=== PATIENT | male | born 1960 | race Caucasian/White ===

== ENCOUNTER → 2017-09-16 | Outpatient (CLI) | payer BC ==
--- NOTE | 2017-09-16 10:19 | Diagnostic Imaging Report ---
INDICATION: Hepatic steatosis. Ultrasonography in the right upper quadrant reveals liver measuring 15.2 cm in length. No focal hepatic abnormality is identified and there is no biliary ductal dilatation. There is an approximately 0.4 cm calculus seen within the lumen of the gallbladder with possible additional calcifications in the neck region. There is no evidence of gallbladder wall thickening or pericholecystic fluid. Common bile duct and pancreas are largely obscured. No right renal abnormality or free fluid is seen. IMPRESSION: Cholelithiasis without other evidence of acute cholecystitis or biliary obstruction. No hepatic lesion was identified. Dictated by: Dictated on workstation # [id number]
== END ==
LOC: RAD 09:03
PROVIDERS: ATTEND Internal Medicine
DX: K80.20 Calculus of gallbladder without cholecystitis without obstruction (principal); K76.0 Fatty (change of) liver, not elsewhere classified
CPT/HCPCS: 76705

== ENCOUNTER 2020-01-16 07:25 | Outpatient (CLI) | payer BC ==
[~2020-01-16] VITALS: Ht 185.4 cm; Wt 94.5 kg
[~2020-01-16 07:25] MED LIST: LOSA50TA63 PO; LOVA20TA2 PO; METF-399 PO; SITA100T12 PO
== END 2020-01-16 14:20 | disposition home or self-care (01) ==
LOC: PREOP 07:25
PROVIDERS: ATTEND Internal Medicine
DX: Z01.818 Encounter for other preprocedural examination (principal)
CPT/HCPCS: 87635

== ENCOUNTER 2020-01-19 07:09 | Day surgery (SDC) | payer BC ==
--- NOTE | 2020-01-06 15:23 | HISTORY AND PHYSICAL ---
DATE OF SERVICE: COLONOSCOPY HISTORY AND PHYSICAL DATE OF ADMISSION: 01/19/2020. HISTORY OF PRESENT ILLNESS: The patient is a 59-year-old white male referred by Dr. Herr for screening colonoscopy. He is deemed to be of average risk. He is not aware of any family history for colon cancer. He denies any problems with bowel habit change, abdominal pain, melena or bright red blood per rectum. PAST MEDICAL HISTORY: Significant for hypertension, hyperlipidemia and type 2 diabetes mellitus with no known history for vascular disease. FAMILY HISTORY: He is not aware of any history for malignancy. Mother of complications of ruptured brain aneurysm at the age of 68. Father of complications of Alzheimer's at the age of 82. PAST SURGICAL HISTORY: Significant for open reduction and internal fixation of a traumatic right tibial fracture. 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 He reports 2 to 3 drinks 2 to 3 times weekly qualifying for a moderate alcohol consumption. REVIEW OF SYSTEMS: CONSTITUTIONAL: The patient denies night sweats, chills, fever or change in weight. PULMONARY: Denies cough, wheezing or shortness of breath or history of asthma. CARDIOVASCULAR: Denies chest pain, dyspnea on exertion, orthopnea, PND, pedal edema, syncope or presyncope. GASTROINTESTINAL: As noted in the HPI. PHYSICAL EXAMINATION: GENERAL: Reveals a pleasant white male in no acute distress. VITAL SIGNS: He is 6 feet 1 inches tall, 216 pounds with a blood pressure of 135/84 and a heart rate of 70 and regular. HEENT: Unremarkable. He is a Mallampati 3 oropharyngeal configuration. CHEST: Clear to auscultation. CARDIOVASCULAR: Reveals a regular rate and rhythm without murmur, S3 or S4. ABDOMEN: Soft, supple without mass, organomegaly or tenderness. EXTREMITIES: Reveal no cyanosis, clubbing or edema. ASSESSMENT AND PLAN: The patient was set up for screening colonoscopy on 01/19/2020. Prep instructions with the Suprep kit were given and questions were answered. I thank you for the referral of this pleasant gentleman. Job ID: [id number] DocumentID: [id number] Dictated Date: 01/06/2020 15:08:15 Admitting Clerk Date: 01/06/2020 15:22:13 Dictated By: KAY GARCIA MD
[~2020-01-19] VITALS: Ht 185.4 cm; Wt 94.5 kg
[2020-01-19] VITALS (12 sets, daily range): BP systolic 133–157; BP diastolic 75–85
--- OUTSIDE RECORDS SUMMARY | 2020-01-19 07:13 | XMS REPORT | Continuity of Care Document ---
Author Organization Unknown Address Unknown Phone Unavailable Allergies Active Description Code Type Severity Reaction Onset Reported/Identified Relationship to Patient Clinical Status Yes acetaminophen [id number] José Miguel g Allergy Unknown Rash 01/12/2020 Yes hydrocodone [id number] Drug Aller gy Unknown Rash 01/12/2020 Medications There is no data. Problems Date Dx Coded Attending Type Code Diagnosis Diagnosed By 09/17/2017 JUAN ANTONIO GE DO, Ot K76.0 FATTY (CHANGE OF) LIVER, NOT ELSEWHERE C 09/17/2017 JUAN ANTONIO GE DO, Ot K80.20 CALCULUS OF GALLBLADDER W/O CHOLECYSTITI 09/22/2017 JUAN ANTONIO GE DO, Ot K76.0 FATTY (CHANGE OF) LIVER, NOT ELSEWHERE C 09/22/2017 JUAN ANTONIO GE DO, Ot K80.20 CALCULUS OF GALLBLADDER W/O CHOLECYSTITI 10/14/2017 JUAN ANTONIO GE DO, Ot K76.0 FATTY (CHANGE OF) LIVER, NOT ELSEWHERE C 10/14/2017 JUAN ANTONIO GE DO, Ot K80.20 CALCULUS OF GALLBLADDER W/O CHOLECYSTITI 04/13/2018 JUAN ANTONIO GE DO, Ot K76.0 FATTY (CHANGE OF) LIVER, NOT ELSEWHERE C 04/13/2018 JUAN ANTONIO GE DO, Ot K80.20 CALCULUS OF GALLBLADDER W/O CHOLECYSTITI 04/15/2018 JUAN ANTONIO GE DO, Ot K76.0 FATTY (CHANGE OF) LIVER, NOT ELSEWHERE C 04/15/2018 JUAN ANTONIO GE DO, Ot K80.20 CALCULUS OF GALLBLADDER W/O CHOLECYSTITI 01/16/2020 RADHA MARIE, KAY Aiken Ot Z01.818 ENCOUNTER FOR OTHER PREPROCEDURAL EXAMIN Procedures There is no data. Results Test Result Range Coronavirus SARS-CoV-2 SO 2018 - 0 08:05 Coronavirus Ab [Units/volume] in Serum Negative Negative Encounters ACCT No. Visit Date/Time Discharge Status Pt. Type Provider Facility Loc./Unit Complaint [id number] 01/16/2020 07:25:00 020 14:20:00 DIS Outpatient KAY GARCIA MD [facility] PREOP CONSTIPATION [id number] 09/16/2017 09:03:00 018 23:59:59 CLS Outpatient JUAN ANTONIO GE DO [facility] RAD ELEVATED LFT'S [id number] 01/19/2020 07:30:00 P EN Preadmit KAY GARCIA MD [facility] ENDO CONSTIPATION
[2020-01-19] MEDS ORDERED: D5 LR IV SOLUTION 1,000 ML IV ONE (07:15)
[2020-01-19] MEDS ORDERED: D5 LR IV SOLUTION 1,000 ML IV STA (07:25)
[2020-01-19] MEDS ORDERED: MIDAZOLAM 5 MG/5 ML (VERSED) VIAL IV PRN (07:30)
[2020-01-19] MEDS ORDERED: fentaNYL INJECTION 100 MCG/2 ML AMP IVP ONE (07:30)
--- NOTE | 2020-01-19 07:36 | Pre-Op Note & Conscious Sedat ---
Pre-Operative Progress Note H&P Reviewed The H&P was reviewed, patient examined and no changes noted. Date H&P Reviewed: Jan 19, 2020 Time H&P Reviewed: 07:36 Conscious Sedation Pre-Proced ASA Score 2 For ASA 3 and 4: Consider anesthesia and medical clearance. Also, for patients with a history of failed moderate sedation consider anesthesia. Airway Lungs Heart ASA score ASA 1: a normal healthy patient ASA 2: a patient with a mild systemic disease (mid diabetes, controlled hypertension, obesity ASA 3: a patient with a severe systemic disease that limits activity (angina, COPD, prior Myocardial infarction) ASA 4: a patient with an incapacitating disease that is a constant threat to life (CHF, renal failure) ASA 5: a moribund patient not expected to survive 24 hrs. (ruptured aneurysm) ASA 6: a declared brain- patient whose organs are being harvested. For emergent operations, add the letter E after the classification Mallampati Classification Grade 3 Sedation Plan Analgesia, Amnesia, Plan communicated to team members, Discussed options with patient/fam, Discussed risks with patient/fam The patient is an appropriate candidate to undergo the planned procedure, sedation, and anesthesia. The patient immediately re-assessed prior to indication. KAY GARCIA MD Jan 19, 2020 07:36
[2020-01-19] MEDS ORDERED: LIDOCAINE JELLY 2% 6 ML SYRINGE ONE (08:24)
[2020-01-19] MEDS ORDERED: fentaNYL INJECTION 100 MCG/2 ML AMP ONE (08:24)
[2020-01-19] MEDS ORDERED: MIDAZOLAM 5 MG/5 ML (VERSED) VIAL ONE (08:24)
[2020-01-19] MEDS ORDERED: SIMETHICONE 40 MG/0.6 ML (MYLICON DROPS) 30 ML BTL ONE (08:32)
--- NOTE | 2020-01-20 03:37 | OPERATIVE REPORT ---
DATE OF SERVICE: COLONOSCOPY SUMMARY INDICATION FOR THE PROCEDURE: Surveillance colonoscopy due to past history of colon polyps and constipation. DESCRIPTION OF PROCEDURE: The patient was placed in the left lateral decubitus position. Prior to undergoing colonoscopy, digital rectal evaluation was performed. Anal sphincter tone was normal and the perianal reflexes intact. No abnormalities were noted on digital inspection of the prostate, anal canal or distal rectal vault. The colonoscope was then inserted into the rectum and under direct visualization advanced to cecum. The cecum was identified by identification of the ileocecal valve and cecal strap. Photographic documentation was obtained. Careful inspection was made as colonoscope was withdrawn. A quality of prep was good. FINDINGS: There was no evidence for internal or external hemorrhoids and the rectum was unremarkable. Present in the distal descending colon was a diminutive 3 mm sessile polyp was biopsied and ablated with no subsequent blood loss. The remainder of the sigmoid colon, descending colon, transverse colon, ascending colon and cecum were unremarkable. The patient did not have an irritable bowel type response to air insufflation or colonic manipulation and no evidence for diverticular disease was noted. There is no evidence for colonic dilatation. ASSESSMENT: One diminutive polyp was removed from the distal sigmoid colon with hyperplastic features. As the patient is not aware of any family history for colon cancer, we would just advocate consideration for repeat surveillance colonoscopy in 10 years. No other abnormalities noted on today's colonoscopy including digital evaluation of the prostate. I thank you for the referral of this pleasant gentleman. Job ID: [id number] DocumentID: [id number] Dictated Date: 01/19/2020 17:15:24 Facility Rehab Director Date: 01/20/2020 03:36:59 Dictated By: KAY GARCIA MD MTDD
== END 2020-01-19 09:30 | disposition home or self-care (01) ==
LOC: ENDO 07:09
PROVIDERS: ATTEND Internal Medicine
DX: Z12.11 Encounter for screening for malignant neoplasm of colon (principal); K63.5 Polyp of colon; I10 Essential (primary) hypertension; E78.5 Hyperlipidemia, unspecified; E11.9 Type 2 diabetes mellitus without complications; Z87.891 Personal history of nicotine dependence; Z86.010 Personal history of colon polyps
CPT/HCPCS: 82962; 88305

== ENCOUNTER → 2020-11-30 | Outpatient (CLI) | payer BC ==
--- NOTE | 2020-11-30 09:45 | Diagnostic Imaging Report ---
INDICATION: Right upper quadrant pain. PROCEDURE: Ultrasound abdomen complete. TECHNIQUE: Multiple real-time grayscale images were obtained of the abdomen in various projections. FINDINGS: The liver is normal in size at 16 cm. Portal vein is patent and shows normal direction of flow. No discrete liver mass is detected. Gallbladder does contain multiple small stones. There is borderline gallbladder wall thickening at 3 mm. No pericholecystic fluid is identified. There is no biliary ductal dilatation. No definite positive sonographic Funk's sign is identified. The visualized pancreas is unremarkable although portion was obscured by bowel gas. Spleen is normal in size at 12.2 cm. Aorta is obscured. IVC is patent. The kidneys are without calculi or hydronephrosis. There is no ascites. IMPRESSION: Cholelithiasis with borderline gallbladder wall thickening. Acute cholecystitis cannot be entirely excluded. If this is of clinical concern, nuclear medicine HIDA scan could be performed for further evaluation. Dictated by: Dictated on workstation # [id number]
== END ==
LOC: RAD 08:15
PROVIDERS: ATTEND Internal Medicine
DX: K80.20 Calculus of gallbladder without cholecystitis without obstruction (principal)
CPT/HCPCS: 76700

== ENCOUNTER 2020-12-11 06:29 | Outpatient (CLI) | payer BC ==
[~2020-12-11] VITALS: Ht 185.5 cm; Wt 88.6 kg
[2020-12-11] MEDS ORDERED: RYBELSUS (10:27)
[2020-12-11] MEDS ORDERED: FARXIGA (10:27)
[2020-12-13] MEDS ORDERED: OXYC5CAP18 PO (11:22)
== END 2020-12-11 10:46 | disposition home or self-care (01) ==
LOC: PREOP 06:29
PROVIDERS: ATTEND Surgery
DX: Z01.818 Encounter for other preprocedural examination (principal)

== ENCOUNTER 2020-12-13 10:56 | Day surgery (SDC) | payer BC ==
[2020-12-13] VITALS (14 sets, daily range): BP systolic 126–222; BP diastolic 11–103
[~2020-12-13] VITALS: Ht 185.5 cm; Wt 88.6 kg
[~2020-12-13 10:56] MED LIST changes: +FARXIGA; +LACTATED RINGERS 1,000 ML IV PRN; +RYBELSUS; +ceFAZolin 2 GM IV Premixed 50 ML IV ONE
--- NOTE | 2020-12-13 11:17 | Progress Note-Pre Operative ---
Pre-Operative Progress Note H&P Reviewed The H&P was reviewed, patient examined and no changes noted. Date Seen by Provider: Dec 13, 2020 Time Seen by Provider: 11:00 Date H&P Reviewed: Dec 13, 2020 Time H&P Reviewed: 11:00 Pre-Operative Diagnosis: sx chronic calculous cholecystitis JUAN ARNOLD MD Dec 13, 2020 11:17
[2020-12-13] MEDS ORDERED: OXYC5CAP18 PO (11:22)
--- NOTE | 2020-12-13 11:22 | Discharge Inst-Surgical ---
D/C Lap Instructions-CATALINA New, Converted, or Re-Newed RX: RX on Chart Follow Up Appt in 2 weeks Activity as tolerated No driving for 24 hours No [address] while on pain medications Incentive Spirometry use every 2 hours while awake Regular Diet Symptoms to Report: Fever over 101 degree F, Nausea/Vomiting Infection Signs and Symptoms to report: Increased redness, Foul odor of wound, Increased drainage Bathing instructions: May shower Operative Area Clean/Dry; Keep incision clean/dry If any problems/questions: Contact your physician or go to Emergency Room JUAN ARNOLD MD Dec 13, 2020 11:22
[2020-12-13] MEDS ORDERED: ONDANSETRON 4 MG/2 ML (SDV) Z0FRAN IVP PRN ×2 (11:30→14:45)
[2020-12-13] MEDS ORDERED: oxyCODONE ER 10 MG (OxyCONTIN CR) TAB PO PRN (11:30)
[2020-12-13] MEDS ORDERED: morphine INJ 10 MG/ML 1ML (SYR OR VIAL) IVP PRN (11:30)
[2020-12-13] MEDS ORDERED: LIDOCAINE/EPI 1%-1:200,000 (XYLOCAINE) 30 ML VIAL ONE (11:35)
[2020-12-13] MEDS ORDERED: ROCURONIUM 10 MG/ML 5 ML SYRINGE IV ONE (12:08)
[2020-12-13] MEDS ORDERED: SEVOFLURANE (ULTANE) 15 ML INHAL SOLN ONE (12:08)
[2020-12-13] MEDS ORDERED: LIDOCAINE PF 2% 5 ML (XYLOCAINE) VIAL ONE (12:08)
[2020-12-13] MEDS ORDERED: proPOfol 200 MG/20 ML (DIPRIVAN) VIAL IV ONE (12:08)
[2020-12-13] MEDS ORDERED: MIDAZOLAM 2 MG/2 ML (VERSED) VIAL ONE ×2 (12:08→13:08)
[2020-12-13] MEDS ORDERED: fentaNYL INJ 100 MCG/2 ML AMP ONE ×2 (12:09→13:08)
[2020-12-13] MEDS ORDERED: ONDANSETRON 4 MG/2 ML (SDV) Z0FRAN ONE (12:09)
[2020-12-13] MEDS ORDERED: ESMOLOL 100 MG/10 ML (BREVIBLOC) VIAL ONE (13:55)
[2020-12-13] MEDS ORDERED: morphine INJ 10 MG/ML 1ML (SYR OR VIAL) ONE (14:37)
--- NOTE | 2020-12-13 14:38 | Progress Note-Post Operative ---
Post-Operative Progess Note Surgeon (s)/Client Retention Specialist (s) Surgeon JUAN ARNOLD MD Client Retention Specialist: kallie brunson OFFICE MESSENGER Pre-Operative Diagnosis GALL STONES Post-Operative Diagnosis chronic calculous cholecystitis. Procedure & Operative Findings Date of Procedure 12/13/20 Procedure Performed/Findings laparoscopic cholecystectomy Anesthesia Type get Estimated Blood Loss Estimated blood loss (mL): minimal Specimens/Packing Specimens Removed gallbladder JUAN ARNOLD MD Dec 13, 2020 14:38
[2020-12-13] MEDS ORDERED: morphine INJ 10 MG/ML 1ML (SYR OR VIAL) IVP ONE (14:45)
--- NOTE | 2020-12-13 14:47 | Anesthesia-General Post-Op ---
General Patient Condition Mental Status/LOC: Same as Preop Cardiovascular: Satisfactory Nausea/Vomiting: Absent Respiratory: Satisfactory Pain: Controlled Complications: Absent Post Op Complications Complications None Follow Up Care/Instructions Patient Instructions None needed. Anesthesia/Patient Condition Patient Condition Patient is doing well, no complaints, stable vital signs, no apparent adverse anesthesia problems. No complications reported per nursing. IRWIN PRATT CRNA Dec 13, 2020 14:47
[2020-12-13] MEDS ORDERED: HYDROmorphone 2 MG/ML VIAL (DILAUDID) ONE (14:59)
[2020-12-13] MEDS ORDERED: hydrALAZINE (APESOLINE) 20 MG/ML VIAL ONE (14:59)
[2020-12-13] MEDS ORDERED: HYDROmorphone 2 MG/ML VIAL (DILAUDID) IV ONE (15:15)
[2020-12-13] MEDS ORDERED: hydrALAZINE (APESOLINE) 20 MG/ML VIAL IV ONE (15:15)
[2020-12-13] MEDS ORDERED: LABETALOL HCL 20 MG/4 ML VIAL ONE (15:28)
[2020-12-13] MEDS: LABETALOL HCL 20 MG/4 ML VIAL IV PRN ×3 (15:40→18:16)
[2020-12-13] MEDS ORDERED: TRM50T PO (16:05)
--- NOTE | 2020-12-13 19:11 | OPERATIVE REPORT ---
DATE OF SERVICE: 12/13/2020 ATTENDING PRIMARY CARE PHYSICIAN: Alejandro Herr DO PREOPERATIVE DIAGNOSIS: Symptomatic chronic calculous cholecystitis. POSTOPERATIVE DIAGNOSIS: Symptomatic chronic calculous cholecystitis. PROCEDURE: Laparoscopic cholecystectomy. SURGEON: Juan Arnold MD. LOOM OVERHAULER: Roberto Rodriguez APRN. ANESTHESIA: General endotracheal. ESTIMATED BLOOD LOSS: Minimal. FINDINGS: Gallbladder wall thickening as well as multiple gallstones. DISPOSITION: The patient tolerated the procedure well. INDICATIONS: The patient is a 60-year-old male who has had at least 3-month history of pain in the right upper abdominal quadrant with radiation towards the back with associated nausea; however, no vomiting usually following meals. He reports that he has also had elevated blood sugars recently; however, he has known he has been a diabetic for greater than 15 years and is currently on metformin. An ultrasound was performed, which did show multiple gallstones as well as gallbladder wall thickening consistent with chronic calculous cholecystitis. DESCRIPTION OF PROCEDURE: The patient was brought to the operating room, laid supine on the table. After adequate IV pain and sedative medications and general endotracheal intubation, the abdomen was prepped and draped in standard surgical fashion. A 0.5% Marcaine with epinephrine was then used to anesthetize the overlying skin in the left upper abdominal quadrant and a transverse skin incision made using a 15 blade. An 0 silk suture was applied to the medial aspect incision for retraction and a Veress needle inserted with low opening pressure of 0 mmHg and the abdomen was then insufflated to 15 mmHg pressure. The Veress needle removed and a 5 mm XL trocar placed followed by a 5 mm 45-degree angle laparoscope visualizing the peritoneal cavity. A 4-quadrant abdominal exploration was performed. There was [id number]-[id number] liver steatosis. There was chronic inflammation of the gallbladder with gallbladder wall thickening as well as omental adhesions towards the fundus of the gallbladder. Under direct visualization, we then proceeded to place a supraumbilical 10 mm port after the skin and peritoneal lining were anesthetized using 0.5% Marcaine with epinephrine and a transverse skin incision made using a 15 blade. In a similar manner, a right upper abdominal quadrant 5 mm port was placed. The patient was then placed in a reverse Trendelenburg position as well as plane right side up, left side down. The fundus of the gallbladder was then retracted anteriorly and superiorly. The omental adhesions were then taken down using blunt dissection as well as electrocautery on the hook instrument. The hepatoduodenal ligament was then opened using blunt dissection as well as electrocautery on the hook instrument. The entire critical view of safety was identified including the triangle of Calot as well as the cystic duct and artery as only two structures going into the gallbladder as well as the cystic plate behind the proximal gallbladder. A timeout was then taken, and the cystic duct and artery were then clipped proximally and distally and cut with EndoShears. The gallbladder was then dissected off the liver bed using cautery on hook instrument with visualization of good hemostasis as well as no leaking ducts of Luschka. The gallbladder was removed through the 10 mm port site using an EndoCatch bag. The 10 mm port site fascia and peritoneum were then closed under direct visualization using a Hernandez-Baldo device and 0 Vicryl suture. The abdomen was desufflated and remaining ports removed. All skin incisions were closed using 4-0 Monocryl running subcuticular sutures. Wounds were then cleaned and covered with Dermabond. The patient tolerated the procedure well. We will start IV normal pain medication as well as a clear liquid diet. Once he is tolerating clears, has good pain control with oral pain medications, ambulating well, we will discharge him home. He will be instructed to do no heavy lifting or exertion for the next two weeks. Job ID: [id number] DocumentID: [id number] Dictated Date: 12/13/2020 14:43:34 Rn Quality Date: 12/13/2020 19:09:26 Dictated By: JUAN ARNOLD MD [facility]
== END 2020-12-13 18:45 | disposition home or self-care (01) ==
LOC: SDC 10:56
PROVIDERS: ATTEND Surgery
DX: K80.10 Calculus of gallbladder with chronic cholecystitis without obstruction (principal); E11.9 Type 2 diabetes mellitus without complications; K76.0 Fatty (change of) liver, not elsewhere classified; I10 Essential (primary) hypertension; E78.00 Pure hypercholesterolemia, unspecified; Z79.84 Long term (current) use of oral hypoglycemic drugs; Z88.5 Allergy status to narcotic agent; Z79.899 Other long term (current) drug therapy; Z87.891 Personal history of nicotine dependence
CPT/HCPCS: 82947; 87081

== ENCOUNTER 2023-03-02 18:51 | Observation (INO) | payer BC, OTHER ==
[~2023-03-02] VITALS: Ht 185 cm; Wt 89.6 kg
[~2023-03-02 18:51] MED LIST changes: -LACTATED RINGERS 1,000 ML IV PRN; +OXYC5CAP18 PO; +TRM50T PO; -ceFAZolin 2 GM IV Premixed 50 ML IV ONE
[2023-03-02 19:20] LABS: BASOPHILS # (AUTO) 0.1 10^3/uL (0.0-0.1); BASOPHILS % (AUTO) 1 % (0-10); EOSINOPHILS # (AUTO) 0.2 10^3/uL (0.0-0.3); EOSINOPHILS % (AUTO) 3 % (0-10); HEMATOCRIT 50 % (40-54); HEMOGLOBIN 16.8 g/dL (13.3-17.7); LYMPHOCYTES # (AUTO) 2.7 10^3/uL (1.0-4.0); LYMPHOCYTES % (AUTO) 35 % (12-44); MEAN CORPUSCULAR HEMOGLOBIN 32 pg (25-34); MEAN CORPUSCULAR HGB CONC 34 g/dL (32-36); MEAN CORPUSCULAR VOLUME 93 fL (80-99); MEAN PLATELET VOLUME 9.4 fL (9.0-12.2); MONOCYTES # (AUTO) 0.9 10^3/uL (0.0-1.0); MONOCYTES % (AUTO) 12 % (0-12); NEUTROPHILS # (AUTO) 3.8 10^3/uL (1.8-7.8); NEUTROPHILS % (AUTO) 49 % (42-75); PLATELET COUNT 205 10^3/uL (130-400); WHITE BLOOD COUNT 7.7 10^3/uL (4.3-11.0)
[2023-03-02 19:30] LABS: ALBUMIN 4.4 GM/DL (3.2-4.5)
[2023-03-02 19:32] LABS: CALCIUM 9.3 MG/DL (8.5-10.1)
[2023-03-02 19:33] LABS: TOTAL PROTEIN 7.5 GM/DL (6.4-8.2)
[2023-03-02 19:34] LABS: BILIRUBIN,TOTAL 0.6 MG/DL (0.1-1.0)
[2023-03-02 19:36] LABS: CREATININE SERUM 1.06 MG/DL (0.60-1.30)
[2023-03-02 19:38] VITALS: BP_SYST 101; BP_SYST 108; BP_SYST 119; BP_DIAS 72; BP_DIAS 75; BP_DIAS 77
[2023-03-02 19:39] LABS: MAGNESIUM 2.1 MG/DL (1.6-2.4)
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
[2023-03-02] MEDS ORDERED: NS 100 ML (IVPB) BAG IV ONE (20:15)
[2023-03-02] MEDS ORDERED: NS IV 1000 ML 1,000 ML IV SCH (20:15)
[2023-03-02] MEDS ORDERED: HOLD METFORMIN - RECEIVED CONTRAST 20 ML VIAL IV SCH (20:15)
[2023-03-02] MEDS ORDERED: IOHEXOL 350 MG/ML 100 ML (OMNIPAQUE 350) VIAL IV ONE (20:15)
--- NOTE | 2023-03-02 20:58 | Diagnostic Imaging Report ---
PROCEDURE: CT angiography of the head and CT angiography of the neck with and without contrast. TECHNIQUE: Contiguous noncontrast images were obtained from the skull base through the vertex. After intravenous contrast administration, helical CT angiography of the neck was performed. Source data was reformatted into 3D MIP projections. Delayed post contrast acquisition was also obtained. Auto Exposure Controls were utilized during the CT exam to meet ALARA standards for radiation dose reduction. INDICATION: Syncope right upper extremity contracture. FINDINGS: Noncontrast CT: The brain parenchyma is normal in attenuation. No intra- or extra-axial mass or fluid collection. No hyperdense intracranial hemorrhage. The ventricles are normal in size and configuration without midline shift. There is normal reeves-white matter differentiation. The subarachnoid cisterns are patent. The visualized paranasal sinuses are well aerated. The mastoid air cells are clear. The visualized portions of the orbits are normal. No aggressive osseous lesion or fracture. CTA Head: The visualized distal internal carotid arteries, anterior and middle cerebral arteries are patent and normal caliber. The distal vertebral arteries, basilar artery, and posterior cerebral arteries are patent and normal caliber. No intracranial dissection, aneurysm, or arteriovenous malformation is seen. CTA NECK FINDINGS: Right vertebral : The right vertebral origin has no stenosis. The cervical right vertebral is normal. The intracranial right vertebral artery is normal. No dissection of the right vertebral artery. Left vertebral : The left vertebral origin has no stenosis. The cervical left vertebral is normal. The intracranial left vertebral artery is normal. No dissection of the left vertebral artery. Right CCA/ICA: No significant stenosis of the right CCA. There is no stenosis of the right ICA per NASCET criteria. No dissection of right carotid system. Left CCA/ICA: No significant stenosis of the left CCA. There is no stenosis of the left ICA per NASCET criteria. No dissection of the left carotid system. Visualized intracranial arteries show no large artery occlusion or cerebral aneurysm. The visualized aerodigestive tract is normal. No pathologic cervical lymphadenopathy by size criteria. No acute soft tissue abnormality. The thyroid is normal. No acute osseous abnormality of the cervical spine. The visualized lung apices are clear. Impression: No large vessel occlusion. No dissection or stenosis of either cervical ICA per NASCET criteria. No dissection or significant stenosis of either cervical vertebral artery. No acute intracranial hemorrhage. No large vascular territory burr-white loss. No intracranial mass, midline shift, or hydrocephalus. Dictated by: Dictated on workstation # [id number]
[2023-03-02 23:00] VITALS: BP 136/85
[2023-03-02 23:15] VITALS: BP 131/69
[2023-03-02 23:30] VITALS: BP 134/90
[2023-03-02 23:45] VITALS: BP 135/81
[2023-03-03] VITALS (8 sets, daily range): BP systolic 97–175; BP diastolic 79–96
[2023-03-03] MEDS: LACTATED RINGERS 1,000 ML 1,000 ML IV SCH ×2 (03:08→11:48)
[2023-03-03] MEDS ORDERED: BENZONATATE 100 MG CAPSULE PO PRN (08:15)
[2023-03-03] MEDS ORDERED: ONDANSETRON INJECTION 4 MG/2 ML (SDV) IV PRN (08:15)
[2023-03-03] MEDS ORDERED: MELATONIN 3 MG TABLET PO PRN (08:15)
[2023-03-03] MEDS ORDERED: MILK OF MAGNESIA 400 MG/5 ML 30 ML UDC PO PRN (08:15)
[2023-03-03] MEDS ORDERED: ANTACID SUSPENSION 30 ML UDC PO PRN (08:15)
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
[2023-03-03] MEDS ORDERED: ENOXAPARIN 40 MG/0.4 ML SYRINGE SQ SCH (09:00)
[2023-03-03] MEDS ORDERED: IBUPROFEN 600 MG TABLET PO SCH (09:00)
[2023-03-03] MEDS ORDERED: ACET-2267 PO (11:51)
[2023-03-03] MEDS ORDERED: LORA10TA7 PO (11:51)
[2023-03-03] MEDS ORDERED: DAPA10TA PO (11:51)
[2023-03-03] MEDS ORDERED: GABA300C PO (11:51)
[2023-03-03] MEDS ORDERED: SEMA7TAB2 PO (11:51)
[2023-03-03] MEDS ORDERED: NAPROXEN 250 MG TABLET PO PRN (12:15)
--- NOTE | 2023-03-03 12:38 | Consultation-Cardiology ---
HPI-Cardiology Cardiology Consultation Date of Consultation 03/03/23 Date of Admission Time Seen by Provider: 12:35 Indication: Syncope HPI 62-year-old gentleman with history of diabetes mellitus, hypertension hyperlipidemia, had a syncopal episode while he was sitting with his family at dinner table. Became unresponsive and had some involuntary movement. The family lowered him to the floor and he regained consciousness within less than a minute. No palpitation, no postictal episode. Had a syncopal episode in the remote past. Denied any chest pain. No shortness of breath or palpitation, occasional feeling of skipped beats Home Medications & Allergies Allergies: Coded Allergies: Opioids - Morphine Analogues (Verified Allergy, Mild, Rash, 03/03/23) acetaminophen (Verified Allergy, Unknown, Rash, 01/12/20) hydrocodone (Verified Allergy, Unknown, Rash, 01/12/20) Home Medication List Reviewed: Yes [id number] Hx Patient Social History Marital Status: Employed/Student: employed Drug of Choice: HISTORY 2nd Hand Smoke Exposure: No Recent Hopitalizations: No Alcohol Use?: Yes Immunizations Up To Date Date of Influenza Vaccine: Apr 12, 2020 Past Medical History Discussed below Family Medical History Significant Family History: No Pertinent Family Hx Review of Systems-General Review of Systems Constitutional: see HPI EENTM: see HPI Respiratory: see HPI; No cough, No dyspnea on exertion, No hemoptysis, No orthopnea, No phlegm, No short of breath, No stridor, No wheezing, No other Cardiovascular: see HPI; No chest pain, No edema, No Hx of Intervention, No palpitations; syncope; No vascular heart diseas, No other Gastrointestinal: no symptoms reported Genitourinary: no symptoms reported Musculoskeletal: no symptoms reported Skin: no symptoms reported Psychiatric/Neurological: See HPI Reviewed Test Results Reviewed Test Results Lab Laboratory Tests Test 03/02/23 19:07 03/02/23 19:10 03/02/23 20:09 03/03/23 10:53 Range/Units Glucometer 131 H 70-110 MG/DL White Blood Count 7.7 4.3-11.0 10^3/uL Red Blood Count 5.34 4.30-5.52 10^6/uL Hemoglobin 16.8 13.3-17.7 g/dL Hematocrit 50 40-54 % Mean Corpuscular Volume 93 80-99 fL Mean Corpuscular Hemoglobin 32 25-34 pg Mean Corpuscular Hemoglobin Concent 34 32-36 g/dL Red Cell Distribution Width 12.5 10.0-14.5 % Platelet Count 205 130-400 10^3/uL Mean Platelet Volume 9.4 9.0-12.2 fL Immature Granulocyte % (Auto) 0 % Neutrophils (%) (Auto) 49 42-75 % Lymphocytes (%) (Auto) 35 12-44 % Monocytes (%) (Auto) 12 0-12 % Eosinophils (%) (Auto) 3 0-10 % Basophils (%) (Auto) 1 0-10 % Neutrophils # (Auto) 3.8 1.8-7.8 10^3/uL Lymphocytes # (Auto) 2.7 1.0-4.0 10^3/uL Monocytes # (Auto) 0.9 0.0-1.0 10^3/uL Eosinophils # (Auto) 0.2 0.0-0.3 10^3/uL Basophils # (Auto) 0.1 0.0-0.1 10^3/uL Immature Granulocyte # (Auto) 0.0 0.0-0.1 10^3/uL Sodium Level 142 135-145 MMOL/L Potassium Level 4.0 3.6-5.0 MMOL/L Chloride Level 106 98-107 MMOL/L Carbon Dioxide Level 25 21-32 MMOL/L Anion Gap 11 5-14 MMOL/L Blood Urea Nitrogen 18 7-18 MG/DL Creatinine 1.06 0.60-1.30 MG/DL Estimat Glomerular Filtration Rate 79 BUN/Creatinine Ratio 17 Glucose Level 139 H 70-105 MG/DL Calcium Level 9.3 8.5-10.1 MG/DL Corrected Calcium 9.0 8.5-10.1 MG/DL Magnesium Level 2.1 1.6-2.4 MG/DL Total Bilirubin 0.6 0.1-1.0 MG/DL Aspartate Amino Transf (AST/SGOT) 71 H 5-34 U/L Alanine Aminotransferase (ALT/SGPT) 124 H 0-55 U/L Alkaline Phosphatase 99 40-136 U/L Troponin I < 0.028 < 0.028 <0.028 NG/ML Total Protein 7.5 6.4-8.2 GM/DL Albumin 4.4 3.2-4.5 GM/DL Serum Alcohol < 10 <10 MG/DL Influenza Type A (RT-PCR) Not Detected Not Detecte Influenza Type B (RT-PCR) Not Detected Not Detecte SARS-CoV-2 RNA (RT-PCR) Detected H Not Detecte Thyroid Stimulating Hormone (TSH) 1.01 0.35-4.94 UIU/ML Physical Exam Physical Exam Vital Signs Vital Signs - First Documented 03/02/23 19:00 Temp 36.9 Pulse 85 Resp 18 B/P (MAP) 155/94 (114) Pulse Ox 97 O2 Delivery Room Air Capillary Refill : Less Than 3 Seconds Height, Weight, BMI Height: '" Weight: lbs. oz. kg; 26.17 BMI Method: General Appearance: No Apparent Distress, WD/WN HEENT: PERRL/EOMI, Normal ENT Inspection Neck: Normal Inspection; No JVD Respiratory: Lungs Clear, Normal Breath Sounds, No Accessory Muscle Use Cardiovascular: Regular Rate, Rhythm, No Edema, No Murmur Gastrointestinal: Normal Bowel Sounds, Non Tender, Soft Extremity: Normal Inspection, No Pedal Edema Neurologic/Psychiatric: Alert, Oriented x3, No Motor/Sensory Deficits, Normal Mood/Affect, palm and back forger II-XII Norm as Tested Skin: Normal Color, Warm/Dry A/P-Cardiology Admission Diagnosis Syncope Hypertension Hyperlipidemia Diabetes mellitus Assessment/Plan Syncope, most probably vasovagal episode We discussed increasing fluid intake, I am planning to evaluate echo and event recorder as an outpatient Monitor his telemetry did not show any arrhythmia, cardiac enzymes were negative, electrolytes were normal Hypertension, maintained on losartan as an outpatient Hyperlipidemia maintained on lovastatin Diabetes mellitus, followed and managed by primary care physician History of tobaccoism in the remote past, stopped smoking in the Okay for discharge and follow-up as an outpatient BILL SMITH MD Mar 03, 2023 12:38
[2023-03-03] MEDS ORDERED: MOLN200C PO (13:12)
--- NOTE | 2023-03-03 13:30 | Discharge Inst-Simple/Standard ---
Discharge Inst-Standard Discharge Medications New, Converted or Re-Newed RX: Transmitted to Pharmacy Patient Instructions/Follow Up Plan of Care/Instructions/FU: Please continue to take your medications as written. Please follow up with your primary care doctor to follow up this hospital stay. Activity as Tolerated: Yes Discharge Diet: ADA Diet Return to The Hospital For: Chest pain, shortness of breath, fever, weakness, if you feel you are getting worse. OLAF DEGROOT MD Mar 03, 2023 13:30
== END 2023-03-03 16:39 | disposition home or self-care (01) ==
LOC: EDUNIT# 18:51 → ER 18:54 → CSD 22:46 → UNDOADMOB 22:46 → CSD 22:55 → UNDODISOB 03-03 16:39
PROVIDERS: ADMIT Internal Medicine; ATTEND Internal Medicine
DX: R55 Syncope and collapse (principal); U07.1 COVID-19; E11.9 Type 2 diabetes mellitus without complications; I10 Essential (primary) hypertension; E78.00 Pure hypercholesterolemia, unspecified; Z79.899 Other long term (current) drug therapy; Z79.84 Long term (current) use of oral hypoglycemic drugs; Z87.891 Personal history of nicotine dependence
CPT/HCPCS: 70496; 70498; 80053; 82947; 83735; 84443; 84484 ×2; 85025; 87636; 93005 ×2; 93041; 96360; 96372; 99284; G0378; G0480; 36415; 80320